=== PATIENT | male | born 1985 | race Caucasian/White ===

== ENCOUNTER 2020-08-01 13:34 | Emergency (ER) | payer MEDICAID ==
[~2020-08-01] VITALS: Ht 170.2 cm; Wt 75.0 kg
[2020-08-01] MEDS ORDERED: KETOROLAC 15MG/ML VIAL IM ONE (14:00)
[2020-08-01 14:34] VITALS: BP 133/73
== END 2020-08-01 14:35 | disposition home or self-care (01) ==
LOC: ER 13:34
DX: R25.2 Cramp and spasm (principal)
CPT/HCPCS: 96372; 99283; J1885